=== PATIENT | female | born 1965 | race Caucasian/White ===

== ENCOUNTER → 2023-08-06 14:59 | Outpatient (REF) | payer SELFPAY | LOC: RAD 14:59 | PROVIDERS: ATTENDING PHYSICIAN Internal Medicine Cardiovascular Disease; FAMILY PHYSICIAN Family Medicine | DX: R07.9 Chest pain, unspecified (principal); Z82.49 Family history of ischemic heart disease and other diseases of the circulatory system; I34.0 Nonrheumatic mitral (valve) insufficiency | CPT/HCPCS: 75571 ==

== ENCOUNTER → 2023-08-27 10:33 | Outpatient (REF) | payer BC, SELFPAY ==
[2023-08-27 12:09] LABS: ALT (SGPT) 53 U/L (0-35); AST (SGOT) 41 U/L (14-36); Albumin 4.4 g/dl (3.5-5.0); Alkaline Phosphatase 120 U/L (38-126); Total Bilirubin 0.6 mg/dl (0.2-1.3); Total Protein 7.1 g/dl (6.3-8.2)
== END ==
LOC: RCS 10:33
PROVIDERS: ATTENDING PHYSICIAN Internal Medicine Cardiovascular Disease; FAMILY PHYSICIAN Family Medicine; REFERRING PHYSICIAN Internal Medicine Gastroenterology
DX: R07.9 Chest pain, unspecified (principal); Z82.49 Family history of ischemic heart disease and other diseases of the circulatory system; I34.0 Nonrheumatic mitral (valve) insufficiency; R79.89 Other specified abnormal findings of blood chemistry
CPT/HCPCS: 36415; 80076; 93306

== ENCOUNTER → 2023-09-16 14:01 | Outpatient (REF) | payer BC, SELFPAY | LOC: WDC 14:01 | PROVIDERS: ATTENDING PHYSICIAN Family Medicine | DX: Z12.31 Encounter for screening mammogram for malignant neoplasm of breast (principal) | CPT/HCPCS: 77063; 77067 ==

== ENCOUNTER → 2023-09-30 11:49 | Outpatient (REF) | payer BC, SELFPAY ==
[2023-09-30 13:42] LABS: % Basophils 0.9 % (0-2); % Eosinophils 1.8 % (0-6); % Immature Granulocytes 0.2 % (0-0.5); % Lymphocytes 30.5 % (20.5-51.1); % Monocytes 6.6 % (1.7-9.3); Absolute Basophils 0.1 10^3/uL (0-0.2); Absolute Eosinophils 0.1 10^3/uL (0-0.7); Absolute Lymphocytes 1.7 10^3/uL (1.2-3.4); Absolute Monocytes 0.4 10^3/uL (0.1-0.6); Absolute Neutrophils 3.4 10^3/uL (1.4-6.5); Hematocrit 39.7 % (37.0-47.0); Hemoglobin 13.1 g/dL (12.0-16.0); Mean Corpuscular Hgb 27.2 pg (27.0-31.0); Mean Corpuscular Volume 82.4 fL (81.0-99.0); Mean Platelet Volume 11.1 fL (7.4-10.4); Nucleated Red Blood Cells % 0 %; Platelet Count 256 10^3/uL (130-400); Red Blood Cell Count 4.82 10^6/uL (4.20-5.40); Red Cell Dist. Width 13.4 % (11.5-14.5); White Blood Cell Count 5.6 10^3/uL (4.8-10.8)
[2023-09-30 14:56] LABS: Blood Urea Nitrogen 14 mg/dl (7-17); Calcium 9.7 mg/dl (8.4-10.2); Carbon Dioxide 27 mmol/L (22-30); Chloride 103 mmol/L (98-107); Glucose 74 mg/dl (70-99); Potassium 3.9 mmol/L (3.5-5.1); Sodium 135 mmol/L (135-145); eGFR > 60.00
[2023-09-30 14:57] LABS: C-Reactive Protein < 5.00 mg/L (0.0-10.00); Vitamin D, 25-OH*** 40.7 ng/mL (30-80)
[2023-10-01 10:31] LABS: Intact PTH 27.8 pg/ml (13.6-85.8)
[2023-10-04 12:33] LABS: Albumin 4.33 g/dL (3.75-5.01); Alpha 1 Globulin 0.25 g/dL (0.19-0.46); Alpha 2 Globulin 0.58 g/dL (0.48-1.05); SPEP IFE Reflex Not Done; Total Protein-Electrophoresis 6.7 g/dL (6.3-8.2)
== END ==
LOC: REG 11:49
PROVIDERS: ATTENDING PHYSICIAN Internal Medicine Rheumatology; FAMILY PHYSICIAN Family Medicine
DX: M81.0 Age-related osteoporosis without current pathological fracture (principal); R29.890 Loss of height; D89.2 Hypergammaglobulinemia, unspecified; E21.5 Disorder of parathyroid gland, unspecified; E55.9 Vitamin D deficiency, unspecified; Z79.899 Other long term (current) drug therapy
CPT/HCPCS: 36415; 72072; 72100; 80048; 82306; 83970; 84155; 84165; 85025; 86140

== ENCOUNTER → 2023-10-08 12:07 | Outpatient (REF) | payer BC, SELFPAY ==
[2023-10-08 14:27] LABS: Urine Calcium 7.3 mg/dl
[2023-10-08 14:39] LABS: 24 Hour Urine Calcium 164.2 mg/day; 24 Hour Urine Total Volume 2250 ml
== END ==
LOC: REG 12:07
PROVIDERS: ATTENDING PHYSICIAN Internal Medicine Rheumatology; FAMILY PHYSICIAN Family Medicine
DX: D89.2 Hypergammaglobulinemia, unspecified (principal); E21.5 Disorder of parathyroid gland, unspecified; E55.9 Vitamin D deficiency, unspecified; M81.0 Age-related osteoporosis without current pathological fracture; R29.890 Loss of height; Z79.899 Other long term (current) drug therapy
CPT/HCPCS: 81050; 82340

== ENCOUNTER → 2023-12-31 10:44 | Outpatient (REF) | payer BC, SELFPAY | LOC: RAD 10:44 | PROVIDERS: ATTENDING PHYSICIAN Internal Medicine Gastroenterology; FAMILY PHYSICIAN Family Medicine | DX: R10.30 Lower abdominal pain, unspecified (principal) | CPT/HCPCS: 74177; Q9967 ==

== ENCOUNTER 2024-10-21 06:24 | Day surgery (SDC) | payer BC, SELFPAY | END 2024-10-21 15:22 | disposition home or self-care (01) | LOC: GI 06:24 | PROVIDERS: ATTENDING PHYSICIAN Internal Medicine Gastroenterology | DX: K52.82 Eosinophilic colitis (principal); D12.0 Benign neoplasm of cecum; D12.5 Benign neoplasm of sigmoid colon; K63.89 Other specified diseases of intestine; K57.30 Diverticulosis of large intestine without perforation or abscess without bleeding; R19.7 Diarrhea, unspecified | CPT/HCPCS: 45380; 88305 ==

== ENCOUNTER → 2024-11-30 12:03 | Outpatient (REF) | payer BC, SELFPAY | LOC: WDC 12:03 | PROVIDERS: ATTENDING PHYSICIAN Family Medicine | DX: Z12.31 Encounter for screening mammogram for malignant neoplasm of breast (principal) | CPT/HCPCS: 77063; 77067 ==